=== PATIENT | female | born 1980 | race Caucasian/White ===

== ENCOUNTER 2016-08-28 08:52 | Day surgery (SDC) | payer OTHER ==
[2016-08-28] VITALS (8 sets, daily range): BP systolic 101–114; BP diastolic 30–71; PULSE 52–74; RESP 11–18; O2SAT 94–99
[~2016-08-28] VITALS: Ht 165.1 cm; Wt 71.3 kg
[~2016-08-28 08:52] MED LIST: ALBU8.5H2 INHALATION
[2016-08-28] MEDS ORDERED: Glycopyrrolate 0.2 mg/mL 5 mL Inj ONE (08:53)
[2016-08-28] MEDS ORDERED: Ondansetron 2 mg/mL 2 mL Inj ONE (08:53)
[2016-08-28] MEDS ORDERED: Neostigmine 1 mg/mL 5 mL Inj ONE (08:53)
[2016-08-28] MEDS ORDERED: Rocuronium 10 mg/mL 5 mL Inj ONE (08:53)
[2016-08-28] MEDS ORDERED: MetoCLOpramide 5 mg/mL 2 mL Inj ONE (08:53)
[2016-08-28] MEDS ORDERED: fentaNYL-PF 50 mCg/mL 2 mL Inj ONE (08:53)
[2016-08-28] MEDS ORDERED: Propofol 10,000 mCg/mL 20 mL Inj ONE (08:53)
[2016-08-28] MEDS ORDERED: Dexamethasone 4 mg/mL Inj ONE (08:53)
[2016-08-28] MEDS: Lactated Ringer's 1,000 ML IV SCH ×2 (08:55→12:15)
[2016-08-28] MEDS ORDERED: Lactated Ringer's 500 ML IV PRN (11:36)
[2016-08-28] MEDS ORDERED: Lactated Ringer's 1,000 ML IV SCH (11:36)
--- NOTE | 2016-08-28 11:36 | PCM.HPANE ---
Patient Data Surgeon Admitting Provider: Attending Provider:Manjit José MD Primary Care Physician:Godfrey Other Provider:Katherine Cooper Anesthesia Reason for Visit Pelvic And Perineal Pain, Female Infertility Ht/WT & BMI Height (Feet): 5 Height (Inches): 5.00 Weight (Kilograms): 71.3 Body Mass Index 26.00 Allergies Coded Allergies: amoxicillin (Verified Adverse Reaction, Severe, GI DISTRESS, 08/27/16) clavulanic acid (Verified Adverse Reaction, Severe, GI DISTRESS, 08/27/16) Past Anesthesia History Anesthesia History: Denies:: Fam Anesthesia Reaction, Fam Malignant Hypertherm Diabetes History Hx Diabetes?: No MRSA MRSA: No Medications Hypertension Medication: No Home Meds Incl Beta Palak: No Reported Medications Albuterol HFA (Proair HFA)8.5 Gm Hfa.aer.ad2 Puffs INHALATION Q4H PRN PRN #1 INHALER 08/27/16 History History of ENT Problems?: No Hx of Heart Problems?: No Cardiovascular History: Denies:: Heart Murmur Hypertension Other Cardiac History: HX ANEMIA (DOES NOT TOLERATE IRON REPLACEMENTS) Hx of Respiratory Problem?: Yes Respiratory History: Positive for:: Asthma (MILD, INTERMITTANT) Use of Inhalers / NEBS Denies:: Use of C-PAP Machine Hx Neurologic Problems?: No Hx of GI Problems?: No Hx of Problems?: No Female Hx: Denies:: Currently Skin History: Denies:: History Skin Disorders? Pressure Ulcers Hx Musculoskeletal Problems?: No Hx of Psycho/Social Problems?: No Hx Surgeries?: No Hx Any Other Health Problems?: No Other History: Denies:: Cancer Endocrine Disease Hospitalization Thyroid Disease History Blood Transfusions: Denies:: Blood Transfusions Hx Diabetes: No Hx Alcohol Use: YesAlcoholic Drinks Per Day: 3/WEEKHave You Smoked inLast 12 mo: No Stop/Bang S-Snoring: Do You Snore Loudly: No T-Tired: feel tired, fatigued: Yes O-Obsered: Observed not breath: No P-Blood Pressure: treated: No B- Body Mass Index > 35 kg/m2: No A- Age over 50: No N- Neck Large Circumference: No G- Gender Male: No WILLIAMS Total Score: 1 WILLIAMS Risk Assessment: Low Risk, <3 Yes Risk Assessment Category Category 1A: Patient has history of documented sleep apnea, and HAS NOT received any narcotic, sedative or anesthesia administration during this stay. Category 1B: Patient has history of documented sleep apnea, and HAS received any narcotic , sedative or anesthesia administration during this stay Category 2: Patient has SUSPECTED Obstructive Sleep Apnea, and HAS received any narcotic , sedative or anesthesia administration during this stay. Category 3: Patient has SUSPECTED Obstructive Sleep Apnea and HAS NOT received narcotic, sedative or anesthesia administration during this stay. Category 4: Outpatient in Procedural Areas with known sleep apnea or who screen positive for High Risk via the STOP/BANG questionnaire. Exam Exam Vital Signs Vital Signs Date Time Temp Pulse Resp B/P Pulse Ox O2 Delivery O2 Flow Rate FiO2 08/28/16 09:20 36.0 69 18 108/63 98 Room Air General Appearance: Alert, Oriented X3, Cooperative, No Acute Distress HEENT/AIRWAY: MP 2 Lungs: Clear to Auscultation, Normal Air Movement Heart: Exam Unremarkable, Regular Rate/Rhythm, No Murmurs/Rubs/Gallops Meds/Labs/Diagnostics Admission Meds Current Medications Lactated Ringer's (Lr) 1,000 ml @ 120 mls/hr Q8H20M IV Last administered on t 08:55; Start 08/28/16 at 05:00; Stop 08/28/16 at 13:19 Plan Impression Patient chart reviewed, patient interviewed and anesthestic plan with risks, benefits, and alternatives discussed, and informed consent obtained. NPO Status: [id number] ASA Physical Status: ASA2 Mod Systemic Disease Anesthetic Plan: GA Bene/Risks/Altern/Consents: Yes HP Complete Prior to Induction: Yes Rogelio Meier MD Aug 28, 2016 10:31
[2016-08-28] MEDS ORDERED: MetoCLOpramide 5 mg/mL 2 mL Inj IVPUSH PRN (11:40)
[2016-08-28] MEDS ORDERED: Labetalol 5 mg/mL 4 mL Inj IV PRN (11:40)
[2016-08-28] MEDS ORDERED: Atropine 0.4 mg/mL Inj IVPUSH PRN (11:40)
[2016-08-28] MEDS ORDERED: hydrALAZINE 20 mg/mL Inj IVPUSH PRN (11:40)
[2016-08-28] MEDS ORDERED: EPHEDrine Sulfate 50 mg/mL Inj IM PRN (11:40)
[2016-08-28] MEDS ORDERED: Ondansetron 2 mg/mL 2 mL Inj IVPUSH PRN (11:40)
[2016-08-28] MEDS ORDERED: Phenylephrine 10,000 mCg/mL Inj IVPUSH PRN (11:40)
[2016-08-28] MEDS ORDERED: EPHEDrine Sulfate 50 mg/mL Inj IVPUSH PRN (11:40)
[2016-08-28] MEDS ORDERED: hydrOXYzine Inj 25 MG/1 mL SDV IM PRN (11:40)
[2016-08-28] MEDS ORDERED: HYDROmorphone 1 mg/mL Inj IVPUSH PRN (11:40)
[2016-08-28] MEDS ORDERED: Bupivacaine-MPF 0.5% W/EPI 30 mL Inj INFILTRATE ONE (12:20)
[2016-08-28] MEDS ORDERED: Ketorolac 15 mg/mL Inj IVPUSH PRN (13:05)
--- NOTE | 2016-08-28 13:05 | PCM.DIMED ---
Discharge Instructions Date of Service Aug 28, 2016 Dates of Hospitalization Diet No restrictions Activity No restrictions Call your provider Fever or Chills, Shortness of breath, Bleeding, Chest pain, Vomitting, Excessive diarrhea, Weakness (unilateral) Patient Instructions Follow-up with PCP in: 2 weeks Manjit José MD Aug 28, 2016 13:05
[2016-08-28] MEDS: fentaNYL-PF 50 mCg/mL 2 mL Inj IVPUSH PRN ×3 (13:07→13:38)
--- NOTE | 2016-08-28 13:25 | PCM.ANEP1 ---
Post Anesthesia Phase 1 PACU Phase 1 Assessment Vital Signs Vital Signs Date Time Temp Pulse Resp B/P Pulse Ox O2 Delivery O2 Flow Rate FiO2 08/28/16 13:15 54 11 104/30 99 Nasal Cannula 2 08/28/16 13:10 67 17 106/61 99 Nasal Cannula 2 08/28/16 13:05 74 14 113/68 99 Nasal Cannula 2 08/28/16 13:00 36.5 73 13 114/71 99 Nasal Cannula 2 08/28/16 09:20 36.0 69 18 108/63 98 Room Air Anesthetic Administered: GA Level of Alertness: Awake, talking FISHER's with Equal Strength: Yes Pain: No Nausea or Vomiting: No Oxygen Delivery: Nasal Cannula Lungs: Clear to Auscultation, Normal Air Movement Rogelio Meier MD Aug 28, 2016 13:25
--- NOTE | 2016-08-28 13:25 | PCM.ANEP2 ---
Post Anesthesia Evaluation ASA/CMS Post Anesthesia VS in Patient's Normal Range?: Yes Resp Stable; Airway Patent?: Yes CV Function & Hydration Stable: Yes Mental Status Recovered?: Yes Pain control Satisfactory?: Yes N/V Control Satisfactory?: Yes Rogelio Meier MD Aug 28, 2016 13:25
--- NOTE | 2016-08-28 14:16 | OP ---
[address] [address] OPERATIVE REPORT PATIENT: ISABELLE LUCIANO : 1980 MR#: [id number] ADMIT: 08/28/2016 JOB ID: [id number] DATE OF SURGERY: 08/28/2016 PROCEDURE: 1. Diagnostic laparoscopy. 2. Tubal patency test. PREOPERATIVE DIAGNOSIS(ES): 1. Chronic pelvic pain. 2. Primary infertility. POSTOPERATIVE DIAGNOSIS(ES): 1. Chronic pelvic pain. 2. Primary infertility. SURGEON: Manjit José MD ANESTHESIA: General by Rogelio Meier MD. ESTIMATED BLOOD LOSS: 5 mL. ESTIMATED URINE OUTPUT: 40 mL. ESTIMATED FLUIDS: 800 mL of lactated Ringer. COMPLICATIONS: None. FINDINGS: Normal appearance of the uterus and adnexa. No significant noticeable lesions in the pelvis. Adhesions in the right middle abdomen between the small bowel, omentum, and anterior abdominal wall. Tubal chromopertubation showed patency of both fallopian tubes. PROCEDURE: The patient was brought to the operating room, where she underwent general anesthesia without difficulty. The patient was placed in dorsal lithotomy position using Rashard stirrups. She was prepped and draped in the usual surgical fashion. An acorn uterine manipulator was placed into the uterus, a 50 mL syringe with 50 mL of methylene blue solution was attached to the acorn manipulator. Attention was directed to the patient's abdomen where, after using local Marcaine, the Veress needle was placed through the umbilicus and CO2 gas was insufflated. Appropriate pneumoperitoneum was achieved. A 5 mm vertical subumbilical incision was made with a scalpel and a 5 mm trocar was placed through the incision. Using the 0 degree scope the pelvis was reviewed with the findings mentioned above. The 2nd 5 mm skin incision was made in the left lower quadrant and the 5 mm trocar was placed through the incision. Using the DeBakey grasper, both of the adnexa where reviewed. Methylene blue was insufflated through the acorn uterine manipulator. Both tubes proved to be patent. Several images were obtained. The abdomen was desufflated from the CO2 gas. All the instruments were removed. All trocars were removed. Trocar skin incisions were closed with 4-0 Monocryl. Dermabond glue was applied. The acorn manipulator was removed from the uterus and the tenaculum was removed from the cervix. Good hemostasis was achieved. The patient was repositioned back into the supine position. She tolerated the procedure well and was transferred to the recovery room in stable condition.
[2016-08-28] MEDS ORDERED: [UNRECOGNIZED DRUG - OTHER] IM PRN (14:40)
== END 2016-08-28 23:59 | disposition home or self-care (01) ==
LOC: SAS 08:52
PROVIDERS: ATTEND Legal Medicine
DX: R10.2 Pelvic and perineal pain (principal); N97.9 Female infertility, unspecified; N94.0 Mittelschmerz; J45.909 Unspecified asthma, uncomplicated
CPT/HCPCS: 49320; 58350; J1100; J2250; J2405; J2710; J2765; J3010; J3410; J7120